=== PATIENT | male | born 1960 | race Caucasian/White ===

== ENCOUNTER → 2018-01-05 | Outpatient (CLI) | payer OTHER ==
--- NOTE | 2018-01-06 09:23 | RAD ---
EXAM DESCRIPTION: Chest,2 Views CLINICAL HISTORY: HYPERTENSIVE HEART DISEASE W/ HEART FAILURE COMPARISON: Previous study January 18, 2016 TECHNIQUE: PA/lateral FINDINGS: There is pleural thickening on the right. This was present previously. Heart size is prominent with increased pulmonary vascularity. No pleural effusion or pneumothorax. Patchy infiltrate or discoid atelectasis in the lingula. Lungs are otherwise clear with no consolidating infiltrate. Lateral view shows intact sternum and T-spine. Vascularity appears increased compared to previous study. IMPRESSION: Prominent heart with increased pulmonary vascularity. Electronically signed by: Mac Ward MD 01/06/2018 9:22 AM CDT
== END ==
LOC: RAD 10:03
PROVIDERS: ATTEND Nurse Practitioner Family
DX: I11.0 Hypertensive heart disease with heart failure (principal)